=== PATIENT | male | born 1970 | race Caucasian/White ===

== ENCOUNTER 2022-09-10 06:59 | Day surgery (SDC) | payer OTHER ==
[2022-09-10] MEDS ORDERED: Sodium Chloride 0.9% 10 ML Syringe FLUSH PRN (07:00)
[2022-09-10] MEDS ORDERED: Propofol 200 MG/20 ML SDV IV ONE (07:00)
[2022-09-10] MEDS: Sodium Chloride 0.9% 1,000 ML IV SCH (07:30)
[2022-09-10] MEDS ORDERED: Midazolam 1 MG/ML 2 ML SDV ONE (07:52)
[2022-09-10] MEDS ORDERED: Propofol 200 MG/20 ML SDV ONE ×2 (07:52→08:30)
== END 2022-09-10 10:08 | disposition home or self-care (01) ==
LOC: KA.SDS 06:59
PROVIDERS: ATTEND Family Medicine
DX: Z12.11 Encounter for screening for malignant neoplasm of colon (principal); K57.30 Diverticulosis of large intestine without perforation or abscess without bleeding; K64.8 Other hemorrhoids; I10 Essential (primary) hypertension; E78.2 Mixed hyperlipidemia; E11.9 Type 2 diabetes mellitus without complications; K21.9 Gastro-esophageal reflux disease without esophagitis; M62.838 Other muscle spasm; Z79.84 Long term (current) use of oral hypoglycemic drugs; Z79.899 Other long term (current) drug therapy; Z88.6 Allergy status to analgesic agent; Z88.8 Allergy status to other drugs, medicaments and biological substances
CPT/HCPCS: 00812; 82947; J2250; J2704; J7030